=== PATIENT | male | born 1970 | race Caucasian/White ===

== ENCOUNTER 2017-10-25 20:46 | Inpatient (IN) | payer SELFPAY ==
[~2017-10-25] VITALS: Ht 185.4 cm; Wt 77.6 kg
[2017-10-25 22:28] LABS: BASOPHILS # (AUTO) 0.1 (0.0-0.1); BASOPHILS % 0.6 % (0.0-1.0); EOSINOPHILS # (AUTO) 0.3 (0.0-0.4); EOSINOPHILS % 3.5 % (0.0-6.0); HEMATOCRIT 37.5 % (38.2-49.6); HEMOGLOBIN 12.1 g/dL (14.0-18.0); LYMPHOCYTES # (AUTO) 1.5 (1.0-3.2); MEAN CORPUSCULAR HEMOGLOBIN 29.4 pg (28-32); MEAN CORPUSCULAR HGB CONC 32.3 g/dL (31-35); MEAN CORPUSCULAR VOLUME 91.2 fL (81-99); MONOCYTES # (AUTO) 0.8 (0.2-0.8); MONOCYTES % 9.2 % (4.4-11.3); NEUTROPHILS % 69.2 % (38.7-80.0); PLATELET COUNT 256 x10e3/uL (140-360); RED BLOOD COUNT 4.11 x10e6/uL (4.3-5.7)
[2017-10-25 22:47] LABS: ALANINE AMINOTRANSFERASE 29 IU/L (0-55); ALBUMIN 3.4 g/dL (3.5-5.0); ALBUMIN/GLOBULIN RATIO 0.9 (0.8-2.0); ALKALINE PHOSPHATASE 79 IU/L (40-150); ANION GAP 11.2 mmol/L (8-16); BLOOD UREA NITROGEN 13 mg/dL (7-26); BUN/CREATININE RATIO 15 (6-25); CALCIUM 8.7 mg/dL (8.4-10.2); CARBON DIOXIDE 30 mmol/L (22-29); CHLORIDE 102 mmol/L (98-107); CREATININE, SERUM 0.89 mg/dL (0.72-1.25); EST GLOMERULAR FILTRATION RATE > 60 ML/MIN (60-); GLUCOSE 102 mg/dL (74-118); POTASSIUM 4.2 mmol/L (3.5-5.1); SODIUM 139 mmol/L (136-145)
[2017-10-25 23:15] LABS: BILIRUBIN,URINE NEGATIVE (NEGATIVE); CLARITY,URINE CLEAR (CLEAR); COLOR,URINE YELLOW (YELLOW); KETONES,URINE NEGATIVE (NEGATIVE); LEUKOCYTE ESTERASE ,URINE NEGATIVE (NEGATIVE); NITRITE,URINE NEGATIVE (NEGATIVE); PROTEIN,URINE DIPSTICK NEGATIVE (NEGATIVE); URINE UROBILINOGEN 0.2 mg/dL (0.2 - 1)
[2017-10-25 23:20] LABS: AMPHETAMINES SCREEN,URINE NEGATIVE (NEGATIVE); BENZODIAZEPINES SCREEN,URINE POSITIVE (NEGATIVE); PHENCYCLIDINE SCREEN,URINE NEGATIVE (NEGATIVE)
[2017-10-25 23:33] LABS: BACTERIA,URINE RARE /HPF; EPITHELIAL CELLS,URINE RARE /LPF; RBC,URINE 0-5 /HPF (0-5); WBC,URINE (MAN) 0-5 /HPF (0-5)
[2017-10-26] MEDS ORDERED: ONDANSETRON HCL INJ 2 MG/ML VIAL IV PRN (00:45)
[2017-10-26] MEDS ORDERED: ACETAMINOPHEN 325 MG TAB PO PRN (00:45)
[2017-10-26] MEDS ORDERED: IBUPROFEN 600 MG TAB PO PRN (01:00)
[2017-10-26] MEDS: PIPER-TAZ 3.375 GM 50 ML IV SCH ×4 (01:14→21:43)
[2017-10-26] MEDS: VANCOMYCIN 1GM/NS 250 ML 250 ML IV SCH ×2 (01:14→10:32)
[2017-10-26] MEDS: SODIUM CHLORIDE 0.9% 1000ML 1,000 ML IV SCH ×4 (02:39→21:42)
[2017-10-26 16:00] VITALS: BP 111/76
--- NOTE | 2017-10-26 16:05 | History and Physical ---
HISTORY OF PRESENT ILLNESS: He is a 47-year-old male who noticed swelling and redness on the left forearm. He was found to have cellulitis. He came to the hospital. He was started on IV antibiotics. REVIEW OF SYSTEMS: CARDIOVASCULAR: No chest pain, no palpitation. RESPIRATORY: No shortness of breath, no cough. GASTROINTESTINAL: No nausea, no vomiting, no diarrhea. GENITOURINARY: No frequency, no dysuria. ALLERGIES: HE IS NOT ALLERGIC TO ANY MEDICATION. SOCIAL HISTORY: He smokes. He does not drink alcohol. 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 PHYSICAL EXAMINATION: HEART: Shows regular rhythm. Normal S1 and S2 sounds. LUNGS: Clear bilaterally. ABDOMEN: Soft. EXTREMITIES: Show the redness and swelling on the medial aspect of the left forearm. LAB: On the BMP: Sodium 139, potassium 4.2, chloride 102, CO2 30, BUN 13, creatinine 0.89, glucose 102. CBC showed white blood count 8.69, hemoglobin 12.1, hematocrit 37.5, platelet count . AST 19, ALT 29, total bilirubin 0.4, alkaline phosphatase 79. FINAL IMPRESSION: 1. Cellulitis on the forearm. 2. History of asthma. PLAN OF TREATMENT: Continue Zosyn 3.375 grams IV piggyback q.8 h., vancomycin 1 gram IV piggyback twice a day. Continue Tylenol 650 mg q.4 h. as needed for pain or fever. Zofran 4 mg IV q.4 h. as needed for vomiting. Ibuprofen 600 mg 3 times a day. We are going to also put a nicotine patch 21 mg daily because the patient is a heavy smoker and he is requesting that. We are going to also consult Dr. Velazquez for infectious diseases. Tentative discharge hopefully tomorrow if the patient is feeling better and the cellulitis is resolving. Job#: [id number]
[2017-10-26 18:08] VITALS: BP 111/76
[2017-10-26 20:00] VITALS: BP 120/57
[2017-10-27] VITALS: BP_SYST 104; BP_SYST 107; BP_DIAS 51; BP_DIAS 59
[2017-10-27] MEDS: VANCOMYCIN 1GM/NS 250 ML 250 ML IV SCH ×2 (00:21→10:30)
[2017-10-27] MEDS: SODIUM CHLORIDE 0.9% 1000ML 1,000 ML IV SCH ×2 (00:36→08:36)
[2017-10-27 04:00] VITALS: BP 119/61
[2017-10-27] MEDS: PIPER-TAZ 3.375 GM 50 ML IV SCH ×2 (06:28→14:00)
[2017-10-27 07:30] VITALS: BP 141/81
[2017-10-27 07:54] VITALS: BP 141/81
[2017-10-27 08:39] LABS: BASOPHILS % 0.7 % (0.0-1.0); EOSINOPHILS # (AUTO) 0.3 (0.0-0.4); HEMATOCRIT 40.8 % (38.2-49.6); HEMOGLOBIN 13.4 g/dL (14.0-18.0); LYMPHOCYTES # (AUTO) 0.9 (1.0-3.2); LYMPHOCYTES % 20.8 % (18.0-39.1); MEAN CORPUSCULAR HEMOGLOBIN 29.5 pg (28-32); MEAN CORPUSCULAR HGB CONC 32.8 g/dL (31-35); MEAN CORPUSCULAR VOLUME 89.7 fL (81-99); MONOCYTES # (AUTO) 0.3 (0.2-0.8); NEUTROPHILS % 66.1 % (38.7-80.0); PLATELET COUNT 266 x10e3/uL (140-360); RED BLOOD COUNT 4.55 x10e6/uL (4.3-5.7); RED CELL DISTRIBUTION WIDTH 12.9 % (11.7-14.4)
[2017-10-27] MEDS ORDERED: NICOTINE 21 MG/EA PATCH TOP SCH (09:00)
[2017-10-27 09:04] LABS: ALANINE AMINOTRANSFERASE 23 IU/L (0-55); ALBUMIN 2.9 g/dL (3.5-5.0); ALBUMIN/GLOBULIN RATIO 0.7 (0.8-2.0); ALKALINE PHOSPHATASE 83 IU/L (40-150); ANION GAP 9.5 mmol/L (8-16); BLOOD UREA NITROGEN 12 mg/dL (7-26); BUN/CREATININE RATIO 16 (6-25); CALCIUM 8.8 mg/dL (8.4-10.2); CARBON DIOXIDE 26 mmol/L (22-29); CHLORIDE 108 mmol/L (98-107); CREATININE, SERUM 0.74 mg/dL (0.72-1.25); EST GLOMERULAR FILTRATION RATE > 60 ML/MIN (60-); GLUCOSE 139 mg/dL (74-118); POTASSIUM 4.5 mmol/L (3.5-5.1); SODIUM 139 mmol/L (136-145)
[2017-10-27 11:00] VITALS: BP 134/74
[2017-10-27 16:00] VITALS: BP 141/82
[2017-10-27] MEDS ORDERED: KEFLEX500 MG PO (16:16)
--- NOTE | 2017-10-27 21:01 | Discharge Summary ---
Patient is a 47-year-old male who came to the hospital because he was having redness and swelling on the left forearm from an open sore. He was started on IV vancomycin, IV Zosyn. Patient has significant improvement. Patient wants to go home today. He is afebrile. White blood count is not elevated. PHYSICAL EXAM: The. On the left upper extremity, he has significantly decreased swelling and redness on the left arm. VITAL SIGNS: Blood pressure is 134/74, temperature 96.9, heart rate 76 per minute, respiratory rate 16 per minute, oxygen saturation 99%. LABORATORY STUDIES: On the BMP sodium 139, potassium 4.5, chloride 108, CO2 26, BUN 12, creatinine 0.74, glucose 139. CBC: White blood count 4.48, hemoglobin 13.4, hematocrit 40.8, platelet count 266,000. AST 15, ALT 23, total bilirubin 0.3, alkaline phosphatase 83. FINAL IMPRESSION: Superficial wound and cellulitis on the left forearm which is resolving. PLAN OF TREATMENT: He is going to start Keflex 500 mg q.6 hours times 10 days. He is recommended to follow up with his primary care physician in [place], [place] in approximately a week and to go to the emergency room [facility] if the symptoms worsen. PAOLA MAYA MD Job#: [id number]
== END 2017-10-27 17:17 | disposition home or self-care (01) | DRG 603 ==
LOC: ER 20:46 → ERHOLD 10-26 00:36 → EDBEDREQ 10-26 02:41 → MED/SURG3 10-26 15:43
PROVIDERS: ADMIT Internal Medicine; ATTEND Internal Medicine
DX: L03.114 Cellulitis of left upper limb (principal); F17.200 Nicotine dependence, unspecified, uncomplicated; S51.802A Unspecified open wound of left forearm, initial encounter; X58.XXXA Exposure to other specified factors, initial encounter; J45.909 Unspecified asthma, uncomplicated
CPT/HCPCS: 36415; 80053; 80307; 81001; 85025; 87040; 99284; J2543; J3370; J7030